=== PATIENT | female | born 1985 | race African-American/Black ===

== ENCOUNTER 2017-02-20 22:39 | Emergency (ER) | payer SELFPAY ==
[~2017-02-20 22:39] MED LIST: ACYCLOVIR400 MG PO; AMOXICILLIN500 M1 PO; AMOXICILLIN500 MG; AMOXIL500 MG PO; BACTRIM DS TABL1 TAB PO; CIPRO250 MG PO; CLEOCIN150 MG/CA1 PO; COMPAZINE10 M PO; CYCLOBENZAPRINE10 M1 PO; CYMBALTA60 MG PO; DICLEGIS PO; DOXY-LEMMON100 MG PO; DOXYCYCLINE HY100 M3 PO; DOXYCYCLINE HY100 MG PO; FLAGYL500 M1 PO; FLAGYL500 MG PO; HYDROCODON-ACE1 EA16 PO; IBUPROFEN200 M3 PO; IBUPROFEN200 MG PO; IBUPROFEN800 M1 PO; IBUPROFEN800 MG PO; K-DUR20 ME1 PO; KEFLEX500 M1 PO; LEVAQUIN500 MG PO; MACROBID 100 M100 MG PO; METHERGINE0.2 MG PO; METROGEL-VAGINA70 GM VG; METRONIDAZOLE500 M3 PO; MONISTAT 745 G1 VG; MOTRIN400 MG; MOTRIN800 MG PO; NO HOME MEDICATION XX; NORCO 5-325 TA1 EACH PO; NORCO 5/325 TAB1 TAB PO; NORCO 5/3251 TAB PO; NORCO 7.5/3251 TA1 PO; PENICILLIN V P500 M1 PO; PERCOCET 5/3251 TAB PO; PRENATAL VITAMI1 T PO; PRENATAL VITAMI1 TAB PO; PRENATAL1 TAB PO; PROTONIX20 M1 PO; PYRIDIUM200 MG PO; TRAMADOL HCL50 M2 PO; TRAMADOL HCL50 MG PO; TYLENOL WITH C1 EACH PO; ULTRAM50 MG PO; VALIUM5 M1 PO; XANAX0.25 M1 PO; ZOFRAN ODT4 MG/UDTAB PO; ZOVIRAX200 MG PO; [UNRECOGNIZED DRUG - REMARK]
[2017-02-20 23:49] LABS: URINE BILIRUBIN NEGATIVE (NEG); URINE BLOOD NEGATIVE (NEG); URINE GLUCOSE (UA) NEGATIVE (NEG); URINE KETONE NEGATIVE (NEG); URINE LEUKOCYTE ESTERASE NEGATIVE (NEG); URINE NITRITE NEGATIVE (NEG); URINE PROTEIN NEGATIVE (NEG); URINE SPECIFIC GRAVITY 1.005 (1.003-1.030)
[2017-02-20 23:52] LABS: URINE APPEARANCE CLEAR; URINE COLOR PALE YELLOW
[2017-02-21 00:21] LABS: BASO % 0.1 % (0-2); EOS % 1.1 % (0-7); EOSINOPHIL ABSOLUTE COUNT 0.1 tho/cmm (0.0-0.7); HCT-HEMATOCRIT 36.2 % (34.0-49.0); IMMATURE GRANULOCYTES ABSOLUTE 0.01 tho/cmm (0-0.03); IMMATURE GRANULOCYTES PERCENT 0.1 % (0-0.3); LYMPH % 41.1 % (20-45); LYMPH ABSOLUTE COUNT 2.9 tho/cmm (0.8-4.5); MCH (MEAN CORPUSCULAR HGB) 30.7 pg (28.0-32.0); MCHC MEAN CORPUSCULAR HGB CONC 33.1 % (32.0-36.0); MCV (MEAN CELL VOLUME) 92.6 fl (82.0-96.0); MEAN PLATELET VOLUME 13.1 cmc (9.4-12.4); MONO % 5.5 % (0-12); MONOCYTE ABSOLUTE COUNT 0.4 tho/cmm (0.0-1.2); NEUTROPHIL ABSOLUTE COUNT 3.7 tho/cmm (1.6-8.0); NEUTROPHIL-AUTOMATED 3.7 tho/cmm (1.6-8.0); NEUTROPHILS % 52.1 % (40-80); PLATELET COUNT 293 tho/cmm (150-450); RED BLOOD COUNT 3.91 mil/cmm (4.00-5.20); RED CELL DISTRIBUTION WIDTH 12.6 % (12.4-16.4)
[2017-02-21 00:33] LABS: ANION GAP 11 mmol/L (0-20); BLOOD UREA NITROGEN 10 mg/dl (6-24); CALCIUM 8.8 mg/dl (8.5-10.5); CARBON DIOXIDE-VENOUS 29 mmol/L (22-32); CHLORIDE 104 mmol/l (96-110); CREATININE 0.85 mg/dl (0.50-1.10); GLUCOSE 82 mg/dL (70-110); POTASSIUM 3.4 mmol/L (3.7-5.1); SODIUM 141 mmol/L (135-145); eGFR VALUE FOR BLACK >90 mL/Min
[2017-02-21] MEDS ORDERED: VIBRAMYCIN100 M1 PO (01:32)
[2017-02-21] MEDS ORDERED: NORCO 5/3251 TAB PO (01:33)
[2017-02-21] MEDS ORDERED: IBUPROFEN600 M1 PO (01:33)
== END 2017-02-21 02:42 ==
LOC: EDMED 22:39
PROVIDERS: Emergency Medicine
DX: N73.9 Female pelvic inflammatory disease, unspecified (principal)
CPT/HCPCS: J0696; J1170; J2405

== ENCOUNTER 2017-06-13 10:39 | Emergency (ER) | payer SELFPAY ==
[~2017-06-13] VITALS: Ht 182.9 cm; Wt 62.0 kg
[~2017-06-13 10:39] MED LIST changes: +IBUPROFEN600 M1 PO; +VIBRAMYCIN100 M1 PO
[2017-06-13 11:38] LABS: URINE BILIRUBIN NEGATIVE (NEG); URINE BLOOD NEGATIVE (NEG); URINE GLUCOSE (UA) NEGATIVE (NEG); URINE KETONE NEGATIVE (NEG); URINE LEUKOCYTE ESTERASE NEGATIVE (NEG); URINE NITRITE NEGATIVE (NEG); URINE PROTEIN NEGATIVE (NEG)
[2017-06-13 11:39] LABS: URINE APPEARANCE CLEAR; URINE COLOR YELLOW
[2017-06-13] MEDS ORDERED: DOXYCYCLINE HY100 M3 PO (15:06)
[2017-06-13] MEDS ORDERED: NORCO 5-325 TA1 EACH PO (15:06)
== END 2017-06-13 15:37 ==
LOC: EDMED 10:39
PROVIDERS: Emergency Medicine
DX: R10.2 Pelvic and perineal pain (principal)
CPT/HCPCS: J0696